=== PATIENT | female | born 1980 | race African-American/Black ===

== ENCOUNTER 2020-01-08 09:21 | Emergency (ER) | payer OTHER, SELFPAY ==
--- NOTE | ~2020-01-08 | XR_ITS ---
EXAMINATION: XR foot RT min 3V EXAM DATE: 01/08/2020 09:45 INDICATION: Right foot pain, no known injury. Lateral foot throbbing. TECHNIQUE: Right foot dorsoplantar, lateral and oblique projections obtained and reviewed. Compariso n is made to prior examination from 07/23/2013. FINDINGS: Right metatarsal bones unremarkable. Small inferior calcaneal spur. No periosteal reactio n or band of sclerosis to suggest subacute stress fracture. There are no acute fractures or dislocati ons identified. There is no subcutaneous gas. The soft tissue is unremarkable. There are no radio paque foreign bodies. IMPRESSION: Small right calcaneal spur. Reviewed, dictated and finalized at location A. IMPRESSION: Small right calcaneal spur.
[2020-01-08 09:30] VITALS: BP 141/95; PULSE 86; RESP 18; TEMP 36.2; O2SAT 100
--- NOTE | 2020-01-08 10:23 | ED_ITS ---
HPI - Extremity Injury (Lower) General Chief Complaint: Extremity Injury, Lower Stated Complaint: foot pain Time Seen by Provider: 01/08/20 09:29 Source: RN notes reviewed History of Present Illness HPI Narrative: Patient presents emergency room from home for left lateral foot pain. Patient symptoms began 3 weeks ago and progressively worsened. She denies any known trauma or injury to the foot. The pain is worse in the lateral foot and worse with ambulation she denies any fevers or chills numbness or tingling in the extremities or any other symptoms Related Data Allergies Allergy/AdvReac Type Severity Reaction Status Date / Time No Known Allergies Allergy Verified 01/08/20 09:35 Review of Systems Review of Systems: Narrative: Gen.: Denies fevers or chills Musculoskeletal: See HPI Neuro: Denies numbness, tingling, weakness Skin: Denies rash Endo: Denies DM PMFSH Past Medical History Medical History (Updated 01/08/20 @ 10:25 by Luiz Johnson DO) Patient denies significant medical history Social History Social History (Updated 01/08/20 @ 10:24 by Luiz Johnson DO) Smoking status: Never smoker Exam Narrative: Exam Narrative: APPEARANCE: No acute distress, nontoxic, resting in bed Eyes: EOMI HEENT: Normocephalic, atraumatic, RESPIRATORY: No respiratory distress MUSCULOSKELETAl: Tender to palpation over the right lateral foot at the base of the fifth metatarsal no swelling or ecchymosis, no tenderness of the remainder the foot or ankle with full range of motion of the ankle without pain, dorsalis pedis pulse 2+, neurovascular intact NEURO: Awake and alert. Following commands, speech normal, no focal deficits SKIN:: Warm, dry. Normal Color no rash or lesions Course Course Emergency Course: Discussed with patient results of workup and diagnosis. Discussed need for follow-up with primary care, proper use of medication, and reasons to return to the emergency department. Patient understands and agrees to current treatment plan Vital Signs Vital signs: Vital Signs Temperature 97.1 F L 01/08/20 09:30 Pulse Rate 86 01/08/20 09:30 Respiratory Rate 18 01/08/20 09:30 Blood Pressure 141/95 H 01/08/20 09:30 Pulse Oximetry 100 01/08/20 09:30 Temperature 97.1 F L 01/08/20 09:30 Pulse Rate 86 01/08/20 09:30 Respiratory Rate 18 01/08/20 09:30 Blood Pressure 141/95 H 01/08/20 09:30 Pulse Oximetry 100 01/08/20 09:30 MDM - Extremity Injury (Lower) Imaging Data Radiologist's impression: ITS Impressions Foot X-Ray 01/08/20 09:50 IMPRESSION: Small right calcaneal spur. Discharge Plan Discharge Clinical Impression: Acute pain of right foot Patient Disposition: Home, Self-Care Condition: Stable Instructions: Antibiotic Form Additional Instructions: Return for increasing pain numbness or tingling in extremities or any other symptoms of concern Prescriptions: New ibuprofen [IBU] 600 mg tablet 600 mg PO Q6H PRN (Reason: pain) Qty: 20 RF: 0 Follow-up/Referrals: John Zepeda JR, MD [Physician] - (Follow-up in 1 to 2 days for further podiatry treatment and evaluation) PHYSICIAN,[employer] [Primary Care Provider] - Time of Disposition: 1
[2020-01-08] MEDS: IBUPROFEN 600 MG TABLET PO (10:27)
[2020-01-08 10:49] VITALS: BP 138/75; PULSE 78; RESP 18; O2SAT 100
== END 2020-01-08 10:50 | disposition home or self-care (01) ==
PROVIDERS: Emergency Provider Emergency Medicine
DX: M79.671 Pain in right foot (principal)
CPT/HCPCS: 73630; 99283; A9270

== ENCOUNTER 2021-12-28 16:23 | Emergency (ER) | payer OTHER, SELFPAY ==
--- NOTE | ~2021-12-28 | CT_ITS ---
EXAMINATION: CT abdomen pelvis w con DATE: 12/28/2021 17:54 INDICATION: Right flank pain. TECHNIQUE: Computed tomography (CT) of the abdomen and pelvis was performed with 100 mL Omnipaque 350 intravenous contrast. Automated exposure control and iterative reconstruction technique were employe d. The dose-length product was 1480.13 mGy-cm. COMPARISON: None. FINDINGS: The visualized portions of the lung bases demonstrate minimal atelectasis. No pleural effus ion. The heart size is normal. No pericardial effusion. The liver, gallbladder, spleen, pancreas, adr enal glands, and kidneys are normal. There is a 6.7 cm mass of the right ovary with mixed attenuation including fat and calcification, consistent with a dermoid. There is a 5.3 cm mass of left ovary wit h mixed attenuation including fat and calcification, consistent with a dermoid. There are no dilated loops of bowel. The appendix is normal. There are no pathologically enlarged lymph nodes. There is an umbilical hernia containing fat. There is no free intraperitoneal fluid. There is mild thoracolumbar spondylosis. IMPRESSION: 1. Bilateral ovarian dermoids. 2. Umbilical hernia containing fat. Reviewed, dictated and finalized at location E.
[2021-12-28 16:34] VITALS: BP 130/74; PULSE 79; RESP 14; TEMP 36.6; O2SAT 100
[2021-12-28 16:47] LABS: Basophils Percent Auto 0.5 % (0.2-1.2); Eosinophils Absolute Auto 0.1 K/mm3 (0-0.3); Eosinophils Percent Auto 1.4 % (0-4.4); Hematocrit 37.8 % (37.0-47.0); Hemoglobin 12.3 g/dL (12.0-15.0); Immature Granulocyte Absolute 0.01 K/mm3 (0.00-0.031); Immature Granulocyte Percent A 0.2 % (0-0.5); Lymphocytes Absolute Auto 2.94 K/mm3 (0.9-3.2); Lymphocytes Percent Auto 46.8 % (18.3-44.2); Mean Corpuscular HGB Conc 32.5 g/dl (32-36); Mean Corpuscular Hemoglobin 30.2 pg (26-34); Mean Corpuscular Volume 92.9 fl (80-100); Mean Platelet Volume 12.2 fl (7.4-10.4); Monocytes Absolute Auto 0.5 K/mm3 (0.1-0.6); Monocytes Percent Auto 8.1 % (2.6-8.5); Neutrophils Absolute Auto 2.7 K/mm3 (1.3-6.7); Platelet Count Result 178 k/mm3 (150-375); Red Blood Count 4.07 M/mm3 (4.2-5.4); Red Cell Distribution Width 12.9 % (11.5-14.5); White Blood Count 6.3 K/mm3 (4.5-10.0)
[2021-12-28 16:56] LABS: Alanine Aminotransferase 21 U/L (6-35); Albumin Level 4.4 g/dL (3.5-5.1); Alkaline Phosphatase 46 U/L (38-126); Anion Gap 15 mmol/L (8-16); Aspartate Amino Transferase 23 U/L (14-36); Bilirubin,Total 0.2 mg/dL (0.2-1.3); Blood Urea Nitrogen 8 mg/dL (7-17); Carbon Dioxide 24 mmol/L (22-30); Chloride 100 mmol/L (98-107); Estimated CRCL calculation 99 ml/min; Estimated Glomerular Filt Rate > 60; Glucose 115 mg/dL (65-110); Potassium 3.8 mmol/L (3.4-5.0); Sodium 139 mmol/L (137-145)
[2021-12-28 16:59] LABS: Appearance Urine Slightly Cloudy (Clear); Bilirubin Urine Negative (Negative); Blood Urine 2+ (Negative); Color Urine Yellow (Yellow); Glucose Urine UA Negative (Negative); Ketones Urine Negative (Negative); Leukocyte Esterase Ur Trace LEU/UL (Negative); Nitrate Urine Negative (Negative); Protein Urine Negative (Negative); Specific Grav Ur 1.015 (1.001-1.035); pH Urine 6.5 (5.0-9.0)
[2021-12-28 17:06] LABS: Add Urine Microscopic? YES
[2021-12-28 17:07] LABS: RBC Urine 0-2 /hpf (0-2); Squamous Epithelial Cell Urine Few /hpf (Few); WBC Urine 0-3 /hpf
[2021-12-28 17:08] LABS: Bacteria Urine None seen /hpf
--- NOTE | 2021-12-28 17:14 | ED.ABDPAIN ---
HPI - Abdominal Pain General Chief Complaint: Abdominal Pain Stated Complaint: Right flank pain Time Seen by Provider: 12/28/21 17:13 Source: patient Mode of arrival: ambulatory Limitations: no limitations History of Present Illness HPI narrative: 41 years old -[place] female presents with right flank pain that started 5 days ago, intermittent, like pulled muscle. She denies any fever, chills, nausea, vomiting, diarrhea, presentation, urinary symptoms, vaginal bleeding or discharge. Patient denies any history of abdominal surgery or recent physical activities Related Data Home Medications Medication Instructions Recorded Confirmed No Home Medications 12/28/21 12/28/21 Allergies Allergy/AdvReac Type Severity Reaction Status Date / Time No Known Allergies Allergy Verified 12/28/21 16:53 Review of Systems Review of Systems: All systems reviewed & are unremarkable except as noted in HPI and below PMFSH Past Medical History Medical History Patient denies significant medical history Social History Social History Smoking status: Never smoker Exam Narrative: General appearance: Well-developed, well-nourished Skin: Normal color, no rash Head: Normocephalic, nontraumatic Eyes: Clear conjunctiva ENT: Oropharynx normal, ears normal, nose normal Neck: Supple, nontender Chest and respiratory: Airway patent, no respiratory distress, no accessory muscle use Heart: Regular rate/rhythm Abdomen: Soft, nontender, no organomegaly, quiet bowel sounds Vascular: Normal peripheral pulses, normal capillary refill. Musculoskeletal: Normal range of motion, nontender back Neurologic: Alert and oriented ?3, [employer] is normal as tested, no gross motor deficit Course Course Emergency Course: Abdominal wall muscular pain is my concern. Patient did not have any fever, chills, nausea, vomiting, physical exam did not show any significant finding, blood work, and CAT scan of the abdomen and pelvis did not show any significant finding. Patient will be discharged on ibuprofen as needed. Vital Signs Vital signs: Vital Signs Temperature 36.6 C 12/28/21 16:34 Pulse Rate 79 12/28/21 16:34 Respiratory Rate 14 12/28/21 16:34 Blood Pressure 130/74 12/28/21 16:34 Pulse Oximetry 100 12/28/21 16:34 Oxygen Delivery Room Air 12/28/21 16:34 Temperature 36.6 C 12/28/21 16:34 Pulse Rate 79 12/28/21 16:34 Respiratory Rate 14 12/28/21 16:34 Blood Pressure 130/74 12/28/21 16:34 Pulse Oximetry 100 12/28/21 16:34 Oxygen Delivery Room Air 12/28/21 16:34 MDM - Abdominal Pain Lab Data Result diagrams: 12/28/21 16:37 12/28/21 16:37 Labs: Lab Results 12/28/21 12/28/21 12/28/21 Range/Units 16:37 16:37 16:51 WBC 6.3 (4.5-10.0) K/mm3 RBC 4.07 L (4.2-5.4) M/mm3 Hgb 12.3 (12.0-15.0) g/dL Hct 37.8 (37.0-47.0) % MCV 92.9 (80-100) fl MCH 30.2 (26-34) pg MCHC 32.5 (32-36) g/dl RDW 12.9 (11.5-14.5) % Plt Count 178 (150-375) k/mm3 MPV 12.2 H (7.4-10.4) fl Immature Gran % (Auto) 0.2 (0-0.5) % Neut % (Auto) 43.0 L (45.5-73.1) % Lymph % (Auto) 46.8 H (18.3-44.2) % [place] % (Auto) 8.1 (2.6-8.5) % Eos % (Auto) 1.4 (0-4.4) % Baso % (Auto) 0.5 (0.2-1.2) % Lymph # (Auto) 2.94 (0.9-3.2) K/mm3 [place] # (Auto) 0.5 (0.1-0.6) K/mm3 Eos # (Auto) 0.1 (0-0.3) K/mm3 Baso # (Auto) 0.0 (0.0-0.1) K/mm3 Abs Immat Gran (auto) 0.01 (0.00-0.031) K/mm3 Absolute Neuts (auto) 2.7 (1.3-6.7) K/mm3 Absolute Nucl
[2021-12-28] MEDS: SODIUM CHLORIDE 0.9% IV 1,000 ML 999 ML IV CONT (17:30)
[2021-12-28 19:18] VITALS: BP 128/76; PULSE 70; RESP 16; O2SAT 100
== END 2021-12-28 19:19 | disposition home or self-care (01) ==
PROVIDERS: Emergency Medicine; Emergency Provider Emergency Medicine; PCP Physician Assistant
DX: R10.9 Unspecified abdominal pain (principal); D27.1 Benign neoplasm of left ovary; D27.0 Benign neoplasm of right ovary; K42.9 Umbilical hernia without obstruction or gangrene
CPT/HCPCS: 36415; 74177; 80053; 81001; 81025; 85025; 96360; 99284; J7030; Q9967

== ENCOUNTER 2022-08-18 11:34 | Emergency (ER) | payer OTHER, MEDICAID, SELFPAY ==
[2022-08-18 12:14] VITALS: BP 147/85; PULSE 89; RESP 16; TEMP 36.3; O2SAT 99
[2022-08-18 13:38] LABS: Basophils Percent Auto 0.5 % (0.2-1.2); Eosinophils Absolute Auto 0.1 K/mm3 (0-0.3); Eosinophils Percent Auto 1.3 % (0-4.4); Hematocrit 40.7 % (37.0-47.0); Hemoglobin 12.9 g/dL (12.0-15.0); Immature Granulocyte Absolute 0.01 K/mm3 (0.00-0.031); Immature Granulocyte Percent A 0.2 % (0-0.5); Lymphocytes Absolute Auto 2.55 K/mm3 (0.9-3.2); Lymphocytes Percent Auto 42.7 % (18.3-44.2); Mean Corpuscular HGB Conc 31.7 g/dl (32-36); Mean Corpuscular Hemoglobin 29.7 pg (26-34); Mean Corpuscular Volume 93.6 fl (80-100); Mean Platelet Volume 12.6 fl (7.4-10.4); Monocytes Absolute Auto 0.4 K/mm3 (0.1-0.6); Monocytes Percent Auto 6.5 % (2.6-8.5); Neutrophils Absolute Auto 2.9 K/mm3 (1.3-6.7); Neutrophils Percent Auto 48.8 % (45.5-73.1); Platelet Count Result 159 k/mm3 (150-375); Red Blood Count 4.35 M/mm3 (4.2-5.4); Red Cell Distribution Width 13.1 % (11.5-14.5)
[2022-08-18 13:44] LABS: Anion Gap 4 mmol/L (8-16); Blood Urea Nitrogen 11 mg/dL (7-17); Calcium 9.4 mg/dL (8.4-10.2); Carbon Dioxide 28 mmol/L (22-30); Chloride 105 mmol/L (98-107); Estimated CRCL calculation 97 ml/min; Estimated Glomerular Filt Rate > 60; Glucose 90 mg/dL (65-110); Sodium 137 mmol/L (137-145)
[2022-08-18 13:56] LABS: Appearance Urine Clear (Clear); Bacteria Urine None Seen /hpf; Bilirubin Urine Negative (Negative); Blood Urine 3+ (Negative); Color Urine Yellow (Yellow); Glucose Urine UA Negative (Negative); Ketones Urine Negative (Negative); Leukocyte Esterase Ur 1+ LEU/UL (Negative); Nitrate Urine Negative (Negative); Non Pathogenic Casts 0-2; Protein Urine Negative (Negative); RBC Urine 21-50 /hpf (0-2); Specific Grav Ur 1.016 (1.001-1.035); Squamous Epithelial Cell Urine Occasional /hpf (Few)
--- NOTE | 2022-08-18 13:59 | ED.FEMALEGU ---
HPI - Female Genitourinary General Chief complaint: Vaginal Bleeding Stated complaint: cramps, spotting. Time Seen by Provider: 08/18/22 13:11 History of Present Illness HPI Narrative: 42-year-old female here for evaluation of pelvic pain and abnormal uterine bleeding x4 days. Patient states that she had a normal menstrual cycle on July 29. She takes oral contraceptive pills and is typically regular with her cycles. 3 days ago she started having bleeding and today she had a small blood clot passed in addition to some brown blood as well. She has not bled enough to saturate a menstrual pad. She has had some lower abdominal cramping that she likens to menstrual cramps. She also reports some dysuria. History of uterine fibroids. Related Data Allergies Allergy/AdvReac Type Severity Reaction Status Date / Time No Known Allergies Allergy Verified 12/28/21 16:53 Review of Systems Review of Systems: Gen: Denies fevers or chills Eyes: Denies eye pain or visual change ENT: Denies congestion Respiratory: Denies shortness of breath or cough CV: Denies chest pain or palpitations GI: reports pelvic cramping : Reports dysuria and vaginal bleeding with lower abdominal cramping. Musculoskeletal: Denies back pain or muscle pain Neuro: Denies numbness, tingling, weakness or focal weakness Skin: Denies rash Except as documented, all other systems reviewed and negative PMFSH Past Medical History Medical History Patient denies significant medical history Social History Social History Smoking status: Never smoker Exam Narrative: APPEARANCE: Well appearing, no pain in distress, well-nourished. Head: Normocephalic and atraumatic. EYES: PERRLA/EOMI, conjunctivae clear NOSE: No nasal drainage EARS: External ear normal in appearance THROAT: Oropharynx is clear. Mucous membranes are moist. NECK: Supple. No adenopathy, no masses. RESPIRATORY: Airway patent, respirations nonlabored. Clear to auscultation bilaterally, no rales, rhonchi, wheezing. : exam performed with apricot packer phillip. there is a scant amount of dark blood in the vaginal vault, no brisk bleed or hemorrhage noted. there is a polyp at the cervical os. no CMT. CARDIOVASCULAR: Regular rate and rhythm without murmurs, rubs, or gallops. ABDOMINAL: Normoactive bowel sounds. Soft, nontender, nondistended. No rebound tenderness or guarding. MUSCULOSKELETAL: Extremities are warm and well-perfused. Moves all extremities well. No edema. NEURO: Normal speech. No focal neurologic deficits. SKIN: Skin is warm and dry. No rashes. PSYCHIATRIC: Normal affect/mood. Course Vital Signs Vital signs: Vital Signs Temperature 97.4 F L 08/18/22 12:14 Pulse Rate 89 08/18/22 12:14 Respiratory Rate 16 08/18/22 12:14 Blood Pressure 147/85 H 08/18/22 12:14 Pulse Oximetry 99 08/18/22 12:14 Oxygen Delivery Room Air 08/18/22 12:14 Temperature 97.4 F L 08/18/22 12:14 Pulse Rate 89 08/18/22 12:14 Respiratory Rate 16 08/18/22 12:14 Blood Pressure 147/85 H 08/18/22 12:14 Pulse Oximetry 99 08/18/22 12:14 Oxygen Delivery Room Air 08/18/22 12:14 MDM - Female Genitourinary MDM Narrative Medical decision making narrative: 42-year-old female here for evaluation of abnormal uterine bleeding and some lower pelvic cramping that she likens to a menstrual cycle. She is nontoxic in appearance and has normal vital signs, no abdominal tenderness on exam. Basic labs are unremarkable, hemoglobin is 12.9. Pelvic exam reveals a polyp at the cervical os, no brisk bleed or hemorrhage noted, no cervical motion tenderness to suggest PID. Patient was given Toradol with improvement of her pain. Her UA appears infected as well, in the setting of urinary symptoms we will treat. She decision-making was used with patient who elected not to get an ultrasoun
[2022-08-18 14:03] LABS: Add Urine Microscopic? YES
[2022-08-18] MEDS: KETOROLAC 30 MG/ML VIAL (*BKC) IM (14:32)
== END 2022-08-18 15:23 | disposition home or self-care (01) ==
PROVIDERS: Emergency Provider Physician Assistant; PCP Physician Assistant
DX: N39.0 Urinary tract infection, site not specified (principal); N84.1 Polyp of cervix uteri
CPT/HCPCS: 36415; 80048; 81001; 81025; 85025; 87070; 87086; 87491; 87591; 87808; 96372; 99284; J1885